=== PATIENT | female | born 1960 ===

== ENCOUNTER 2025-02-08 06:25 | Day surgery (SDC) | payer OTHER ==
[2025-02-02 13:16] VITALS: BP 160/78
[~2025-02-08] VITALS: Ht 165.1 cm; Wt 68.0 kg
[~2025-02-08 06:25] MED LIST: COZAAR50 MG PO; MULTIPLE VITAM1 EAC2 PO; PROTONIX40 MG PO
[2025-02-08] MEDS ORDERED: CHLORHEXIDINE GLUCONATE 120 ML BOTTLE TOP ONE (06:56)
[2025-02-08] MEDS ORDERED: GENTAMICIN SULFATE 40 MG/ML VIAL ONE (06:56)
[2025-02-08] MEDS ORDERED: CEFAZOLIN SODIUM 1,000 MG VIAL ONE (07:06)
[2025-02-08] MEDS ORDERED: LIDOCAINE HCL 1%/EPINEPHRINE 20ML VIAL IJ ONE ×2 (07:13→07:53)
[2025-02-08] MEDS ORDERED: TRAM1TAB98 PO (10:21)
[2025-02-08] MEDS ORDERED: MACROBID 100 M100 MG PO (10:21)
== END 2025-02-08 11:35 | disposition home or self-care (01) ==
LOC: CIR.AMB 06:25
PROVIDERS: ATTEND Obstetrics & Gynecology Gynecology
DX: N81.11 Cystocele, midline (principal); Z88.2 Allergy status to sulfonamides